=== PATIENT | female | born 1990 | race Caucasian/White ===

== ENCOUNTER 2017-12-03 13:29 | Outpatient (REF) | payer BC, SELFPAY ==
--- NOTE | 2017-12-03 11:00 | PAPFT_PTH ---
PATIENT: MEG GARCIA LOC: [facility] U#:[id number] AGE/SX: 27/F ROOM: RE12/03/[address]: HARRY Zavala : 1990 BED: DIS: 12/03/2017 SPEC #: [id number] RECD: 12/03/17 18:19 STATUS: ELVA REQ #: [id number] WENDY: 12/03/17 11:[address]: Doreen Holder DEPT: [facility] Cytology RECD BY: Damaris Mcnamara ENTERED: 12/03/17 18:20 SP TYPE: PAPFT OTHR DR: Venus Ahumada APRN Tissues: 1 - CX/ENDOCX FOR PAP SMEARS Procedures: PAP THIN PREP/[facility] Screening HPV DNA PROBE Comments: [id number]
[2017-12-04 14:18] LABS: Chlamydia Result Negative; GC Result Negative; Specimen Description CERVIX
== END 2017-12-03 13:49 ==
LOC: LBN 13:29
PROVIDERS: Visit Provider Nurse Practitioner Family
DX: Z11.3 Encounter for screening for infections with a predominantly sexual mode of transmission (principal); Z12.4 Encounter for screening for malignant neoplasm of cervix
CPT/HCPCS: 87491; 87591; 88142; 87624

== ENCOUNTER 2017-12-17 14:01 | Outpatient (CLI) | payer BC, SELFPAY ==
[2017-12-17 16:13] LABS: TSH (W/Ref FT4) 1.71 uIU/mL (0.358-3.74)
[2017-12-18 17:03] LABS: Estradiol 42 pg/ml
[2017-12-21 10:56] LABS: LH 2.8 mIU/ml; Prolactin 4.4 ng/ml
[2017-12-21 11:05] LABS: FSH 6.8 mIU/ml
[2017-12-21 11:29] LABS: HIV-1/2 Ag & Ab Screen Negative (NEGAT)
[2017-12-21 11:42] LABS: Rubella IgG Ab (UVM) Positive
[2017-12-21 11:46] LABS: Varicella IgG Antibody Negative
[2017-12-21 12:15] LABS: Syphilis Serology (RPR) Negative (Negative)
[2017-12-21 17:43] LABS: Antimullerian Hormone 6.1 ng/mL (0.9-9.5)
== END 2017-12-17 14:21 ==
PROVIDERS: Visit Provider Obstetrics & Gynecology
DX: N92.6 Irregular menstruation, unspecified (principal); Z11.4 Encounter for screening for human immunodeficiency virus [HIV]; Z11.59 Encounter for screening for other viral diseases; Z01.84 Encounter for antibody response examination
CPT/HCPCS: 36415; 86787; 86850; 86900; 86901; 87389; 82670; 83001; 83002; 83520; 84146; 84443; 86592; 86762

== ENCOUNTER 2018-01-01 00:17 | Outpatient (CLI) | payer BC, SELFPAY ==
--- NOTE | 2018-01-01 16:00 | DI.RAD_ITS ---
SYMPTOM/DIAGNOSIS: INFERTILITY, IRREGULAR MENSES, N92.6 SONOHYSTEROGRAM: Sonohysterogram was performed by Dr. Cary. Please see Dr. Cary's procedure note. Note is made of multiple Nabothian cysts. Ovaries have a normal follicular appearance. No free fluid identified in the cul-de-sac. Myometrium is unremarkable in appearance.
--- NOTE | 2018-01-01 16:41 | W.PROCNOTE ---
Date of service: 01/01/18 Time of Service: 15:40 Procedure Note Date of procedure: 01/01/18 Procedure: sonohystogram Surgeon/Proceduralist/Physician: Jo Ann Cary Procedure Diagnosis: Infertility, menorrhagia Procedure Indications: Infertility and menorrhagia Procedure Description: Procedure was explained, risks discussed, questions answered and consent obtained. Time out was done. Pt was placed in dorsolithotomy position and under sterile conditions a [employer] speculum was introduced into the vagina. The cervix was cleased with betadine and a HSG catheter was introduced through the cervix. The endometrium was then filled with 20cc of normal saline. Using a transvaginal sono probe the endometrial cavity was visualized and no abnormalities were noted. The fluid was then removed from the cavity with the same syringe. The graves speculum was removed. The procedure was then completed. Pt tolerated the procedure well. There were no complications. EBL 0cc.
--- NOTE | 2018-01-01 16:52 | OPPNE_ITS ---
Date of service: 01/01/18 Time of Service: 15:40 Procedure Note Date of procedure: 01/01/18 Procedure: sonohystogram Surgeon/Proceduralist/Physician: Jo Ann Cary Procedure Diagnosis: Infertility, menorrhagia Procedure Indications: Infertility and menorrhagia Procedure Description: Procedure was explained, risks discussed, questions answered and consent obtained. Time out was done. Pt was placed in dorsolithotomy position and under sterile conditions a [place] speculum was introduced into the vagina. The cervix was cleased with betadine and a HSG catheter was introduced through the cervix. The endometrium was then filled with 20cc of normal saline. Using a transvaginal sono probe the endometrial cavity was visualized and no abnormalities were noted. The fluid was then removed from the cavity with the same syringe. The graves speculum was removed. The procedure was then completed. Pt tolerated the procedure well. There were no complications. EBL 0cc.
== END 2018-01-01 00:37 ==
PROVIDERS: Visit Provider Obstetrics & Gynecology
DX: N97.9 Female infertility, unspecified (principal); N92.0 Excessive and frequent menstruation with regular cycle
CPT/HCPCS: 58340; 76831

== ENCOUNTER 2018-03-05 10:19 | Outpatient (CLI) | payer BC, SELFPAY ==
[2018-03-05 11:46] LABS: TSH (W/Ref FT4) 2.75 uIU/mL (0.358-3.74)
[2018-03-05 22:05] LABS: Estradiol 58 pg/ml
[2018-03-08 09:38] LABS: FSH 9.6 mIU/ml
[2018-03-08 10:30] LABS: DHEA Sulfate 337 ug/dl (96-512)
[2018-03-09 15:41] LABS: Testosterone, Free 0.43 ng/dL (0.06-1.06); Testosterone, Total 39 ng/dL (8-60)
[2018-03-12 15:07] LABS: Antimullerian Hormone 8.9 ng/mL (0.9-9.5)
== END 2018-03-05 10:39 ==
PROVIDERS: Visit Provider Obstetrics & Gynecology
DX: E28.9 Ovarian dysfunction, unspecified (principal)
CPT/HCPCS: 36415; 82627; 84402; 84403; 82670; 83001; 83520; 84443

== ENCOUNTER 2018-03-05 12:55 | Outpatient (REF) | payer BC, SELFPAY ==
--- NOTE | 2018-03-05 10:00 | ENDO_PTH ---
PATIENT: MEG GARCIA LOC: [facility] U#:[id number] AGE/SX: 27/F ROOM: RE03/05/[address]: Lai Chiu MD : 1990 BED: DIS: 03/05/2018 SPEC #: [id number] RECD: 03/05/18 12:57 STATUS: ELVA REQ #: [id number] WENDY: 03/05/18 10:[address]: Lai Chiu DEPT: Surgical Specimen RECD BY: Damaris Mcnamara ENTERED: 03/05/18 12:58 SP TYPE: Endo OTHR DR: MANSI Yuan, [employer] OFFICER Tissues: 1 - ENDOCERVICAL BX/CURRETTE Procedures: GROSS AND MICRO LEVEL 4 Comments: [id number]
== END 2018-03-05 13:15 ==
LOC: LBN 12:55
PROVIDERS: Visit Provider Obstetrics & Gynecology
DX: N88.8 Other specified noninflammatory disorders of cervix uteri (principal); R87.610 Atypical squamous cells of undetermined significance on cytologic smear of cervix (ASC-US); B97.7 Papillomavirus as the cause of diseases classified elsewhere
CPT/HCPCS: 88305